=== PATIENT | female | born 1970 | race Caucasian/White ===

== ENCOUNTER 2016-06-01 09:51 | Observation (INO) | payer OTHER ==
[~2016-06-01] VITALS: Ht 160 cm; Wt 76.1 kg
[~2016-06-01 09:51] MED LIST: COLACE 100MG C100 MG PO; IBUPROFEN600 MG PO; NORCO 10-325 T1 EACH PO
[2016-06-01 10:23] LABS: HEMOGLOBIN 13.3 gm/dl (12.3-15.3); RED BLOOD COUNT 4.55 M/UL (4.00-5.10); WHITE BLOOD COUNT 8.1 K/UL (4.5-11.0)
[2016-06-01 11:04] LABS: BUN/CREATININE RATIO 21 (0-10)
[2016-06-01] MEDS ORDERED: PRILOSEC OTC20 MG PO (23:49)
[2016-06-01] MEDS ORDERED: LORTAB 7.5-3251 EACH PO (23:49)
[2016-06-02 04:33] LABS: HEMOGLOBIN 12.3 gm/dl (12.3-15.3); RED BLOOD COUNT 4.26 M/UL (4.00-5.10); WHITE BLOOD COUNT 6.3 K/UL (4.5-11.0)
[2016-06-02 04:46] LABS: BUN/CREATININE RATIO 25 (0-10)
== END 2016-06-02 11:18 | disposition home or self-care (01) ==
LOC: ER1 09:51 → ZEROF 13:00 → M/S 23:35
PROVIDERS: Emergency Medicine; ADMIT Emergency Medicine
DX: R07.9 Chest pain, unspecified (principal); K21.9 Gastro-esophageal reflux disease without esophagitis; G89.29 Other chronic pain; M54.9 Dorsalgia, unspecified; Z80.0 Family history of malignant neoplasm of digestive organs; Z82.49 Family history of ischemic heart disease and other diseases of the circulatory system; Z79.891 Long term (current) use of opiate analgesic; Z79.899 Other long term (current) drug therapy; Z90.49 Acquired absence of other specified parts of digestive tract; Z98.51 Tubal ligation status; Z98.890 Other specified postprocedural states
CPT/HCPCS: 36415; 71010; 80048; 80053; 82550; 82553; 83735; 83874; 84484; 85025; 85379; 93005; 99285; G0378

== ENCOUNTER → 2016-08-07 | Outpatient (CLI) | payer OTHER ==
[~2016-08-07] MED LIST changes: +LORTAB 7.5-3251 EACH PO; +PRILOSEC OTC20 MG PO
== END ==
LOC: RAD 17:29
DX: M54.2 Cervicalgia (principal); M54.6 Pain in thoracic spine
CPT/HCPCS: 72040; 72070

== ENCOUNTER 2020-09-06 13:25 | Emergency (ER) | payer OTHER ==
[~2020-09-06 13:25] MED LIST changes: +BENTYL 10MG CAP10 MG PO; +NORFLEX 100 MG100 MG PO; +ZOFRAN4 MG PO
== END 2020-09-06 15:58 | disposition home or self-care (01) ==
LOC: ER1 13:25
DX: J02.9 Acute pharyngitis, unspecified (principal); Z20.822 Contact with and (suspected) exposure to COVID-19
CPT/HCPCS: 0240U; 87081; 87880; 99283

== ENCOUNTER → 2020-11-19 | Outpatient (CLI) | payer OTHER ==
[~2020-11-19] MED LIST changes: +BUSPAR 10MG10 MG PO; +GABAPENTIN300 MG PO; +PERCOCET 5/325 T1 EA PO; +PROGESTERONE200 MG PO; +SERTRALINE HCL100 MG PO; +VALISONE 0.1% O15 GM EXT
== END ==
LOC: RAD 09:50
DX: M79.672 Pain in left foot (principal); M77.32 Calcaneal spur, left foot
CPT/HCPCS: 73630

== ENCOUNTER → 2020-11-22 | Day surgery (SDC) | payer OTHER | END | disposition home or self-care (01) | LOC: OR 07:54 | DX: Z12.11 Encounter for screening for malignant neoplasm of colon (principal); Z86.010 Personal history of colon polyps; Z88.0 Allergy status to penicillin; Z90.49 Acquired absence of other specified parts of digestive tract; Z20.822 Contact with and (suspected) exposure to COVID-19 | CPT/HCPCS: J2704; J7030 ==

== ENCOUNTER 2020-12-29 02:50 | Emergency (ER) | payer OTHER ==
[2020-12-29 04:50] LABS: HEMOGLOBIN 12.5 gm/dl (12.3-15.3); RED BLOOD COUNT 4.1 M/UL (4.00-5.10); WHITE BLOOD COUNT 13.6 K/UL (4.5-11.0)
[2020-12-29 05:07] LABS: BUN/CREATININE RATIO 27 (0-10)
[2020-12-29] MEDS ORDERED: ZOFRAN ODT 4 MG4 MG PO (07:42)
[2020-12-29] MEDS ORDERED: FLOMAX 0.4 MG0.4 MG PO (07:42)
== END 2020-12-29 07:50 | disposition home or self-care (01) ==
LOC: ER1 02:50
PROVIDERS: Family Medicine
DX: N13.2 Hydronephrosis with renal and ureteral calculous obstruction (principal); R31.9 Hematuria, unspecified; E11.65 Type 2 diabetes mellitus with hyperglycemia; F11.20 Opioid dependence, uncomplicated; Z90.49 Acquired absence of other specified parts of digestive tract
CPT/HCPCS: 80053; 81001; 84703; 85025; 96374; 96375; 99284; J1885; J2405; J7030